=== PATIENT | female | born 1990 | race American Indian/Alaskan Native ===

== ENCOUNTER 2017-07-24 00:43 | Emergency (ER) | payer MEDICAID ==
[2017-07-24 01:25] VITALS: BP 146/88
--- NOTE | 2017-07-24 02:03 | XRay Report ---
FINAL REPORT EXAM: XR ANKLE 2V LT HISTORY: pain TECHNIQUE: AP and lateral views of the left ankle were submitted. FINDINGS: There are no skeletal or soft tissue abnormalities. IMPRESSION: Within normal limits.
--- NOTE | 2017-07-24 03:03 | XRay Report ---
FINAL REPORT EXAM: XR TIBIA FIBULA 2V LT HISTORY: pain and swelling TECHNIQUE: Four views of the left tibia-fibula were obtained. FINDINGS: There is no evidence of fracture or soft tissue abnormality. The ankle knee joints are well maintained. IMPRESSION: Within normal limits.
== END 2017-07-24 06:03 | disposition left against medical advice (07) ==
LOC: ED 00:43
DX: M79.605 Pain in left leg (principal); Z53.21 Procedure and treatment not carried out due to patient leaving prior to being seen by health care provider

== ENCOUNTER 2017-11-21 20:30 | Emergency (ER) | payer MEDICAID ==
[2017-11-21 21:24] VITALS: BP 142/88
--- NOTE | 2017-11-21 23:20 | Cat Scan Report ---
FINAL REPORT PROCEDURE: CT HEAD/BRAIN WO CON TECHNIQUE: Computerized tomography of the head was performed without contrast material. HISTORY: headache COMPARISON: No prior studies are available for comparison. FINDINGS: Skull and scalp: Normal. Paranasal sinuses: Normal. Ventricles and subarachnoid spaces: Normal. Cerebrum: No evidence of hemorrhage, acute infarction or mass . Cerebellum and brainstem: No evidence of hemorrhage, acute infarction or mass. Vasculature: Normal. Comments: None. IMPRESSION: Normal Examination
[2017-11-22] MEDS ORDERED: TORADOL IM ONE (03:47)
[2017-11-22] MEDS ORDERED: NORCO 5/325 PO ONE (03:48)
--- NOTE | 2017-11-22 04:01 | Emergency Department Report ---
HPI - General Chief Complaint: Headache Time Seen by Provider: 11/22/17 03:29 - HPI HPI: The patient is a 26-year-old female who presents for reevaluation of headache. The patient reports headache for the past 9 days, constant since onset, sharp in quality, left-sided in location, moderate in severity, and is exacerbated with bright lights. The patient denies fever, head injury, neck pain, neck stiffness, vision or hearing changes, smell or taste changes, paresthesias, facial drooping, slurred speech, seizure-like activity, urine or bowel incontinence or retention, or other focal neurological deficit. ED Past Medical Hx - Past Medical History Previous Medical History?: No Hx Hypertension: Yes Hx Pulmonary Embolism: No Hx GERD: Yes Hx Sickle Cell Disease: (SICKEL CELL TRAIT) Hx Asthma: No Hx COPD: No Hx HIV: No - Surgical History Past Surgical History?: Yes Additional Surgical History: "caustic lye esophageal surgery" as an infant. Esophageal scar tissue removal 8 years of age - Social History Smoking Status: Never Smoker Substance Use Type: None - Medications Home Medications: Home Medications Medication Instructions Recorded Confirmed Last Taken Type Hydrochlorothiazide [HCTZ] 1 tab PO DAILY 04/02/14 04/02/14 04/02/14 History Omeprazole 1 cap PO DAILY 04/02/14 04/02/14 04/02/14 History Lansoprazole (Nf) [Prevacid (Nf)] 30 mg PO QDAY #15 capsule 05/16/15 Unknown Rx Promethazine [Phenergan TAB] 25 mg PO Q6HR PRN #10 tab 05/16/15 Unknown Rx Butalb/Acetaminophen/Caffeine 1 - 2 cap PO Q6HR PRN #20 cap 11/22/17 Unknown Rx [Fioricet 50-300-40 mg CAP] traMADol [Ultram 50 MG tab] 50 mg PO Q6HR PRN #10 tablet 11/22/17 Unknown Rx ED Review of Systems ROS: Stated complaint: HEADACHE Other details as noted in HPI Constitutional: denies: fever ENT: denies: throat or neck pain Respiratory: denies: cough, shortness of breath Cardiovascular: denies: chest pain Endocrine: denies unexplained weight loss or gain Gastrointestinal: denies: abdominal pain, nausea Genitourinary: denies: dysuria Musculoskeletal: denies: leg swelling Skin: denies: rash Neurological: reports: headache Hematological/Lymphatic: denies: easy bleeding or easy bruising Psych: denies sadness or hopelessness Physical Exam - Physical Exam Vital Signs: Vital Signs 11/21/17 21:17 Temperature 98.5 F Pulse Rate 71 Blood Pressure 142/88 O2 Sat by Pulse 100 Oximetry Physical Exam: General: well-nourished, well-developed, no acute distress Head: Normocephalic, atraumatic Eyes: normal sclera ENT: Mucous membranes are pink and moist Neck: trachea midline, neck supple, No neck stiffness, no cervical adenopathy Respiratory: Breath sounds equal bilaterally, no wheezing, rales, or rhonchi Cardio: S1 and S2 present, no murmurs, rubs, gallops, capillary refill is brisk Abdomen: Normoactive bowel sounds, soft abdomen, no rigidity, no guarding or rebound tenderness Chest WALL/Back: No tenderness to palpation of the chest wall, no CVA tenderness with percussion Musc: No pitting edema Skin: No rash Neuro: alert oriented x4, normal cognition, speech normal, PERRL, EOM intact, no facial drooping, no uvula or tongue deviation on protrusion, no deficit with rotation of neck or shoulder shrug, no obvious gross motor deficit in the upper or lower extremities with flexion or extension at the shoulder, elbow, wrist, hip, knee, or ankle bilaterally, no obvious gross sensation deficit to crude touch or 2 pt discrimination, 2+ symmetric reflexes on DTR testing, no coordination deficit with [id number] or [id number] testing, Babinski downgoing, romberg negative, patient able to to ambulate without abnormal gait Psych: Normal affect ED Course Vital Signs 11/21/17 21:17 Temperature 98.5 F Pulse Rate 71 Blood Pressure 142/88 O2 Sat by Pulse 100 Oximetry ED Medical Decision Making - Medical Decision Making The patient was seen and examined by myself. The patient is placed on a conveyor monitor and continuous pulse ox. On initial evaluation, the patient was found to be in no distress. CT scan the head is negative for acute disease process. The patient is given an IM dose of Toradol and a tablet of [place] for her pain. As there are no neuro deficits or other findings on examination concerning for acute intracranial disease process, and as the patient states that symptoms are consistent with previous headaches, MRI scan of the head is not indicated at this time. The patient was reevaluated and reported that their symptoms were markedly improved. The patient is stable for discharge with outpatient follow-up. The patient is given follow-up and return instructions. The patient expressed understanding and agreed with the plan. The patient is discharged in stable condition. Critical care attestation.: If time is entered above; I have spent that time in minutes in the direct care of this critically ill patient, excluding procedure time. ED Disposition Clinical Impression: Acute non intractable tension-type headache Disposition: TO HOME OR SELFCARE Is pt being admited?: No Does the pt Need Aspirin: No Condition: Stable Instructions: Cluster Headache (ED), Acute Headache (ED), Migraine Headache (ED ) Referrals: KIMBERLY NAZARIO NP-C [Primary Care Provider] - 3-5 Days WILLAM POST MD [Staff Physician] - 3-5 Days Time of Disposition: 03:57
== END 2017-11-22 04:13 | disposition home or self-care (01) ==
LOC: ED 20:30
DX: G44.209 Tension-type headache, unspecified, not intractable (principal); I10 Essential (primary) hypertension; K21.9 Gastro-esophageal reflux disease without esophagitis
CPT/HCPCS: 70450; 96372; 99283; J1885

== ENCOUNTER 2018-02-25 20:26 | Emergency (ER) | payer MEDICAID ==
--- NOTE | 2018-02-25 23:15 | Emergency Department Report ---
ED Headache HPI - General Chief Complaint: Headache Stated Complaint: HEADACHE Time Seen by Provider: 02/25/18 23:00 Source: patient, family Exam Limitations: no limitations - History of Present Illness Initial Comments: This is 27-year-old female here reports having 2 days of headache. She states that she has a history of cluster headache in she's been followed by her primary care physician who gave her Percocet that is not helping. She said that she came here in November 2017 and she had a CAT scan done and CAT scan did not show any abnormality. She describes her headache as being on the left side of her head radiating to the back with feeling of tenderness to scalp. No eye symptoms. Achy and throbbing. Headache comes 3-4 times a day. Headache lasted anywhere from 1-2 hours. She said last time she had this was about a month ago. She said medication that was given in emergency room help. I reviewed her chart and patient receive Fioricet and Phenergan. She's had 1 headaches, she gets nausea but no vomiting. Denies any head trauma. Denies any fever or chills. Denies any neck pain or stiffness. Denies any cough, shortness of breath or his address. Denies any nasal congestion or runny nose. Pain is 8 out of 10, intermittent achy, throbbing. She took Percocet without any relief. No exacerbating factors Timing/Duration: waxing and waning, other (2 days) Quality: severe, achy, throbbing Head Injury Location: frontal, parietal Recent Head Trauma: chronic headaches Modifying Factors: improves with: other (none) Associated Symptoms: nausea/vomiting. denies: confusion, fatigue, facial pain, fever/chills, loss of consciousness, nasal congestion, nasal drainage, numbness in legs/feet, rash, seizures, sinus infection, stiff neck, vision changes, weakness Allergies/Adverse Reactions: Allergies hydralazine [From Apresoline] Allergy (Verified 02/25/18 20:50) Shortness of Breath Home Medications: Ambulatory Orders Hydrochlorothiazide [HCTZ] 1 tab PO DAILY 04/02/14 Omeprazole 1 cap PO DAILY 04/02/14 Lansoprazole (Nf) [Prevacid (Nf)] 30 mg PO QDAY #15 capsule 05/16/15 Promethazine [Phenergan TAB] 25 mg PO Q6HR PRN #10 tab 05/16/15 Butalb/Acetamin/Caff 50-325-40 [Fioricet] 1 tab PO Q6HR PRN #12 tab 11/22/17 traMADol [Ultram 50 MG tab] 50 mg PO Q6HR PRN #10 tablet 11/22/17 Butalb/Acetaminophen/Caffeine [Fioricet 50-300-40 mg CAP] 1 - 2 cap PO Q6HR PRN #20 cap 02/26/18 Ondansetron [Zofran Odt] 4 mg PO Q8H PRN #12 tab.rapdis 02/26/18 ED Review of Systems ROS: Stated complaint: HEADACHE Other details as noted in HPI Constitutional: denies: chills, fever Eyes: denies: eye pain, eye discharge, vision change ENT: denies: ear pain, throat pain, dental pain, congestion Respiratory: denies: cough, shortness of breath, SOB with exertion, SOB at rest , wheezing Cardiovascular: denies: chest pain, palpitations Gastrointestinal: nausea. denies: vomiting, diarrhea Musculoskeletal: denies: back pain, joint swelling, arthralgia Skin: denies: rash, lesions Neurological: headache. 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 Esophageal scar tissue removal 8 years of age - Family History Family history: hypertension - Social History Smoking Status: Never Smoker Substance Use Type: None - Medications Home Medications: Home Medications Medication Instructions Recorded Confirmed Last Taken Type Hydrochlorothiazide [HCTZ] 1 tab PO DAILY 04/02/14 04/02/14 04/02/14 History Omeprazole 1 cap PO DAILY 04/02/14 04/02/14 04/02/14 History Lansoprazole (Nf) [Prevacid (Nf)] 30 mg PO QDAY #15 capsule 05/16/15 Unknown Rx Promethazine [Phenergan TAB] 25 mg PO Q6HR PRN #10 tab 05/16/15 Unknown Rx Butalb/Acetamin/Caff 50-325-40 1 tab PO Q6HR PRN #12 tab 11/22/17 Unknown Rx [Fioricet] traMADol [Ultram 50 MG tab] 50 mg PO Q6HR PRN #10 tablet 11/22/17 Unknown Rx Butalb/Acetaminophen/Caffeine 1 - 2 cap PO Q6HR PRN #20 cap 02/26/18 Unknown Rx [Fioricet 50-300-40 mg CAP] Ondansetron [Zofran Odt] 4 mg PO Q8H PRN #12 tab.rapdis 02/26/18 Unknown Rx ED Physical Exam - General Limitations: No Limitations General appearance: alert, in no apparent distress - Head Head exam: Present: atraumatic, normocephalic, normal inspection, other (normal exam) - Eye Eye exam: Present: normal appearance, PERRL, EOMI. Absent: nystagmus, periorbital swelling, periorbital tenderness Pupils: Present: normal accommodation - ENT ENT exam: Present: normal exam, normal orophraynx, mucous membranes moist, TM's normal bilaterally, normal external ear exam - Neck Neck exam: Present: normal inspection, full ROM, other (no C-spine tenderness). Absent: tenderness, lymphadenopathy - Respiratory Respiratory exam: Present: normal lung sounds bilaterally. Absent: respiratory distress, chest wall tenderness - Cardiovascular Cardiovascular Exam: Present: normal rhythm, tachycardia, normal heart sounds. Absent: systolic murmur, diastolic murmur - Extremities Exam Extremities exam: Present: normal inspection, full ROM, normal capillary refill , other (no clubbing, cyanosis or edema. +2 pulses all extremities and no neurovascular compromise). Absent: tenderness, pedal edema, joint swelling, calf tenderness - Neurological Exam Neurological exam: Present: alert, oriented X3, normal gait, reflexes normal. Absent: motor sensory deficit - Expanded Neurological Exam Expanded Neurological exam: Absent: innattentive, memory loss-remote event, memory loss- recent event, ataxia, receptive aphasia, expressive aphasia, total aphasia, tremor, protecting the airway Patient oriented to: Present: person, place, time Speech: Present: fluid speech Cranial nerves: EOM's Intact: Normal, Gag Reflex: Normal, Tongue Deviation: Normal, Nystagmus: Normal, Facial Sensation: Normal Cerebellar function: Romberg: Normal Upper motor neuron: Pronator Drift: Normal, Sensory Extinction: Normal Sensory exam: Upper Extremity Light Touch: Normal, Upper Extremity Temperature: Normal, UE 2 Point Discrimination: Normal, Lower Extremity Light Touch: Normal, Lower Extremity Temperature: Normal, LE 2 Point Discrimination: Normal Motor strength exam: RUE: 5, LUE: 5, RLE: 5, LLE: 5 Best Eye Response ([place]): (4) open spontaneously Best Motor Response ([place]): (6) obeys commands Best Verbal Response ([place]): (5) oriented Muriel Total: 15 - Psychiatric Psychiatric exam: Present: normal affect, normal mood - Skin Skin exam: Present: warm, dry, intact, normal color. Absent: rash ED Course Vital Signs 02/25/18 02/26/18 20:26 00:07 Temperature 98.7 F Pulse Rate 106 H 84 Respiratory 18 Rate Blood Pressure 135/84 O2 Sat by Pulse 99 Oximetry - Reevaluation(s) Reevaluation #1: 02/26/18 00:09 Patient received Zofran 4 mg ODT for nausea, Toradol 6 mg IM and Decadron 10 mg IM and upper reevaluation she says she feels much better. She says that her primary care also uses oxygen on her and that helped her so she was given oxygen at 3 L as a L for 30 minutes and she says she feels 100% better. ED Medical Decision Making - Medical Decision Making Patient has been examined by myself and patient with acute episodic headache . Head and neurological exam is normal. Patient with chronic cluster type headache and is being followed by her primary care. Pain subsided after medication in emergency room. Patient was given 4 mg Zofran ODT for the nausea which relieved her nausea. Patient was given Toradol 60 mg IM and Decadron 10 mg IM, O2 3 L nasal cannula for 30 minutes which completely relieved her headache. Previous record review and patient had CT scan for 2018 which revealed no acute intracranial processes. Patient discharged home with education on headaches, medication problems treatment plan. Referral given to neurologist and to follow up with her primary care in 2-3 days. I discussed with her for her headache returns to return to the emergency room. She voiced understanding. Patient discharged home in stable condition with prescription for Zofran and Fioricet with codeine Critical care attestation.: If time is entered above; I have spent that time in minutes in the direct care of this critically ill patient, excluding procedure time. ED Disposition Clinical Impression: Nausea alone Headache Qualifiers: Headache type: unspecified Headache chronicity pattern: episodic headache Intractability: not intractable Qualified Code(s): R51 - Headache Disposition: DC-01 TO HOME OR SELFCARE Is pt being admited?: No Does the pt Need Aspirin: No Condition: Stable Instructions: Acute Headache (ED), Acute Nausea and Vomiting (ED) Additional Instructions: Please follow up with neurologist in 2-3 days Follow-up with your primary care physician in 2-[address] or operate heavy machinery while taking Fioricet with codeine as this medication causes drowsiness If here headache returns, return to the emergency room. Prescriptions: Butalb/Acetaminophen/Caffeine [Fioricet 50-300-40 mg CAP] 1 - 2 cap PO Q6HR PRN #20 cap PRN Reason: Headache Ondansetron [Zofran Odt] 4 mg PO Q8H PRN #12 tab.rapdis PRN Reason: nausea and/or vomiting Referrals: PRIMARY CARE, [Primary Care Provider] - 2-3 Days ISHAN DUNCAN MD [Staff Physician] - 2-3 Days Forms: Work/School Release Form(ED)
[2018-02-25] MEDS ORDERED: DECADRON IM STA (23:16)
[2018-02-25] MEDS ORDERED: TORADOL IM ONE (23:16)
[2018-02-25] MEDS ORDERED: ZOFRAN ODT PO ONE (23:17)
[2018-02-26 00:39] VITALS: BP 121/72
== END 2018-02-26 00:22 | disposition home or self-care (01) ==
LOC: ED 20:26
DX: R51 Headache (principal); R11.0 Nausea; I10 Essential (primary) hypertension; K21.9 Gastro-esophageal reflux disease without esophagitis
CPT/HCPCS: 96372; 99283; J1100; J1885; Q0162

== ENCOUNTER 2021-09-29 17:26 | Emergency (ER) | payer MEDICAID, OTHER ==
[2021-09-29 21:39] LABS: Basophils % (Auto) 0.3 % (0.0-1.8); Eosinophils # (Auto) 0.2 K/mm3 (0.0-0.4); Eosinophils % (Auto) 1.4 % (0.0-4.3); Hematocrit 37.8 % (30.3-42.9); Hemoglobin 12.1 gm/dl (10.1-14.3); Lymphocytes # (Auto) 3.5 K/mm3 (1.2-5.4); Lymphocytes % (Auto) 32.4 % (13.4-35.0); Mean Corpuscular HGB Conc 32 % (30-34); Mean Corpuscular Volume 82 fl (79-97); Monocytes # (Auto) 0.6 K/mm3 (0.0-0.8); Monocytes % (Auto) 5.8 % (0.0-7.3); Platelet Count 436 K/mm3 (140-440); Red Blood Count 4.62 M/mm3 (3.65-5.03); Red Cell Distribution Width 13.6 % (13.2-15.2)
[2021-09-29 21:58] LABS: Alanine Aminotransferase 20 units/L (7-56); Albumin 4.3 g/dL (3.9-5); Blood Urea Nitrogen 10 mg/dL (7-17); Calcium 8.8 mg/dL (8.4-10.2); Hemolysis Index 6
[2021-09-29 22:00] LABS: BUN/Creatinine Ratio 14
[2021-09-29 23:24] VITALS: BP 130/80
== END 2021-09-29 23:25 | disposition home or self-care (01) ==
LOC: ED 17:26
DX: R07.9 Chest pain, unspecified (principal); I10 Essential (primary) hypertension; K44.9 Diaphragmatic hernia without obstruction or gangrene; K21.9 Gastro-esophageal reflux disease without esophagitis; D57.3 Sickle-cell trait; Z98.890 Other specified postprocedural states; Z88.8 Allergy status to other drugs, medicaments and biological substances
CPT/HCPCS: 36415; 71046; 80053; 83690; 84484; 85025; 93005; 93010; 99284; J3490; Q0162

== ENCOUNTER 2022-02-10 22:41 | Emergency (ER) | payer OTHER ==
[2022-02-10 22:46] VITALS: BP 162/95
[2022-02-10] MEDS ORDERED: ASPIRIN 325 MG TAB PO ONE (23:24)
--- NOTE | 2022-02-10 23:56 | XRay Report ---
CHEST 2 VIEWS INDICATION / CLINICAL INFORMATION: CHEST PAIN. COMPARISON: 09/29/2021 FINDINGS: SUPPORT DEVICES: None. HEART / MEDIASTINUM: No significant abnormality. LUNGS / PLEURA: No significant pulmonary or pleural abnormality. No pneumothorax. ADDITIONAL FINDINGS: Lucencies noted in the anterior left thorax with air-fluid levels suggesting a m organii hernia. IMPRESSION: 1. No acute findings. 2. Findings suggesting a morganii hernia. Signer Name: Jean-Pierre Moran DO Signed: 02/10/2022 11:51 PM Workstation Name: [id number]
[2022-02-11 00:10] LABS: Basophils % (Auto) 0.3 % (0.0-1.8); Hematocrit 40.5 % (30.3-42.9); Hemoglobin 13.3 gm/dl (10.1-14.3); Lymphocytes # (Auto) 1.4 K/mm3 (1.2-5.4); Mean Corpuscular HGB Conc 33 % (30-34); Mean Corpuscular Volume 82 fl (79-97); Monocytes # (Auto) 0.4 K/mm3 (0.0-0.8); Monocytes % (Auto) 3.7 % (0.0-7.3); Platelet Count 412 K/mm3 (140-440); Red Blood Count 4.93 M/mm3 (3.65-5.03); Red Cell Distribution Width 13.9 % (13.2-15.2)
[2022-02-11 00:34] LABS: Alanine Aminotransferase 16 units/L (7-56); Albumin 4.4 g/dL (3.9-5); Blood Urea Nitrogen 11 mg/dL (7-17); Calcium 9.3 mg/dL (8.4-10.2); Hemolysis Index 19
[2022-02-11 00:46] LABS: BUN/Creatinine Ratio 16
--- NOTE | 2022-02-11 10:38 | Electrocardiograph Report ---
[facility] Test Date: 2022-02-10 Test Time: 22:55:25 Pat Name: NATHALY DUQUE Department: Room: Gender: F Twister Doffer: [place] : 1990 Requested By: ED DOC Order Number: [id number] Reading MD: Shane Osborn Measurements Intervals [place] Rate: 90 P: 56 AK: 137 QRS: 62 QRSD: 75 T: 57 QT: 342 QTc: 418 Interpretive Statements Sinus rhythm Compared to ECG 09/29/2021 18:02:52 Sinus tachycardia no longer present Electronically Signed On 02-11-2022 10:38:01 EDT by Shane Osborn
== END 2022-02-11 01:00 | disposition left against medical advice (07) ==
LOC: ED 22:41
DX: R07.9 Chest pain, unspecified (principal); Z53.21 Procedure and treatment not carried out due to patient leaving prior to being seen by health care provider
CPT/HCPCS: 36415; 71046; 80053; 84484; 85025; 93005